=== PATIENT | female | born 1945 | race Caucasian/White ===

== ENCOUNTER 2019-04-15 07:14 | Outpatient (REF) | payer MEDICARE, SELFPAY ==
[2019-04-15 11:35] LABS: Chol HDL Ratio 3.88 mg/dL (0.0-4.40); Cholesterol 233 mg/dL (0-200); Glucose 81 mg/dL (65-115); HDL Cholesterol 60 mg/dL (60-100); LDL Cholesterol Calculated 151 mg/dL (50-129); LDL HDL Ratio 2.52 RATIO (0.00-3.22); Triglycerides 109 mg/dL (0-150)
[2019-04-15 11:55] LABS: Estmated Average Glucose 108; Hemoglobin A1C 5.4 % (4.0-6.0)
== END 2019-04-15 07:15 | disposition home or self-care (01) ==
LOC: LAB 07:14
PROVIDERS: Family Provider Family Medicine; Visit Provider Dermatology
DX: Z01.89 Encounter for other specified special examinations (principal)
CPT/HCPCS: 80061; 82947; 83036

== ENCOUNTER 2019-12-06 14:13 | Outpatient (CLI) | payer MEDICARE, SELFPAY ==
--- NOTE | 2019-12-06 14:23 | MM_ITS ---
WS: [id number] BILATERAL SCREENING DIGITAL MAMMOGRAM WITH CAD HISTORY: SCREENING COMPARISON: 11/24/2017, 11/11/2017, 10/17/2016 Bilateral CC and MLO views submitted. Computer aided detection analyzed. Breast composition: The breasts are heterogeneously dense, which may obscure small masses. No suspici ous masses, microcalcifications or architectural distortion. Stable intramammary lymph node in the me dial RIGHT breast. MM/[place] [id number] IMPRESSION: BI-RADS: 2-Benign FOLLOW UP: 1 Year Follow-up
--- NOTE | 2019-12-06 14:55 | XR_ITS ---
WS: [id number] SCREENING DEXA SCAN [facility] CLINICAL INFORMATION: OSTEOPOROSIS COMPARISON: 2017 FINDINGS: The L1-L4 bone mineral density measures 0.943 g/cm2. This corresponds to a T score score of -2.0 and Z score of 0.2. Left femoral neck bone mineral density measures 0.713 g/cm2. This corresponds to a T score of -2.3 an d Z score of -0.4. Right femoral neck bone mineral density measures 0.702 g/cm2. This corresponds to a T score -2.4of an d Z score of -0.5. Mean femoral neck bone mineral density measures 0.708 g/cm2. This corresponds to a T score of -2.4 an d Z score of -0.5. XR/XR DEXA axial skeleton* [id number] IMPRESSION: Osteopenia in the lumbar spine. Osteopenia approaching osteoporosis in the femo ral necks. Patient's FRAX calculated 10 year probability for major osteoporotic fracture i s 43.1 % and osteoporotic hip fracture is 26.0%. Bone mineral density in the lumbar spine has decreased -3.3% and also decreased -3.5% in the femoral necks since 2017.
== END 2019-12-06 14:14 | disposition home or self-care (01) ==
LOC: RADSHAW 14:20
PROVIDERS: PCP Family Medicine; Visit Provider Family Medicine
DX: Z12.31 Encounter for screening mammogram for malignant neoplasm of breast (principal); M81.0 Age-related osteoporosis without current pathological fracture
CPT/HCPCS: 77067; 77080

== ENCOUNTER → 2020-08-17 12:23 | Outpatient (BNVA) | payer MEDICARE, SELFPAY | PROVIDERS: PCP Family Medicine; Visit Provider Nurse Practitioner Family | DX: Z20.822 Contact with and (suspected) exposure to COVID-19 (principal) | CPT/HCPCS: 87635 ==

== ENCOUNTER 2020-12-05 14:20 | Outpatient (CLI) | payer MEDICARE, SELFPAY ==
--- NOTE | 2020-12-05 14:33 | MM_ITS ---
WS: [id number] Exam: [place] [id number] Date/Time of Exam: 12/05/2020 2:37 PM Reason For Exam: SCREENING VIEWS: MLO and CC views both breasts. Comparison made with prior exam of 11/11/2017, 10/17/2016 and 12/06/2019. Findings: There was no sign of mass, architectural distortion or suspicious calcification in either breast. He terogeneously dense MM/[place] [id number] Impression: BI-RADS: 2-Benign FOLLOW-UP: 1 Year Follow-up This mammogram was also analyzed by the Computer Aided Detection System R2 Imag e Manager Of Clinical.
== END 2020-12-05 14:21 | disposition home or self-care (01) ==
LOC: RADSHAW 14:29
PROVIDERS: PCP Family Medicine; Visit Provider Family Medicine
DX: Z12.31 Encounter for screening mammogram for malignant neoplasm of breast (principal)
CPT/HCPCS: 77067

== ENCOUNTER → 2021-10-31 11:02 | Outpatient (BNVA) | payer MEDICARE, SELFPAY | PROVIDERS: PCP Family Medicine; Visit Provider Family Medicine | DX: Z00.00 Encounter for general adult medical examination without abnormal findings (principal); E78.5 Hyperlipidemia, unspecified | CPT/HCPCS: 80053; 80061; 85025 ==

== ENCOUNTER 2021-12-17 14:08 | Outpatient (CLI) | payer MEDICARE, SELFPAY ==
--- NOTE | 2021-12-17 14:22 | MM_ITS ---
WS: [id number] BILATERAL 3D TOMOSYNTHESIS DIGITAL SCREENING MAMMOGRAPHY WITH CAD CLINICAL INFORMATION: SCREENING HISTORY: Screening mammogram. No current complaints. COMPARISON: December 05, 2020 TECHNIQUE: Bilateral CC and MLO views. FINDINGS: The breasts are composed of heterogeneous fibroglandular density tissue, which can limit the detectio n of small underlying mass lesions. Asymmetric density near the chest wall 9 mm appears new or progre ssed compared to the prior examinations. Recommend RIGHT diagnostic mammography and ultrasound. This is best seen on the cc view. LEFT breast is unchanged. A few incidental and punctate calcifications. MM/[place] [id number] IMPRESSION: BI-RADS: 0-Incomplete: Need additional imaging evaluation FOLLOW UP: Need Additional Imaging Recommend RIGHT breast diagnostic mammography and ultrasound.
== END 2021-12-17 14:09 | disposition home or self-care (01) ==
LOC: RAD 14:10
PROVIDERS: PCP Family Medicine; Visit Provider Family Medicine
DX: Z12.31 Encounter for screening mammogram for malignant neoplasm of breast (principal)
CPT/HCPCS: 77063; 77067

== ENCOUNTER 2021-12-17 14:08 | Outpatient (CLI) | payer MEDICARE, SELFPAY ==
--- NOTE | 2021-12-17 15:30 | XR_ITS ---
WS: [id number] DEXA (DUAL ENERGY X-RAY ABSORPTIOMETRY) Bone mineral density was performed using a DNage machine. HISTORY: screening COMPARISON: 12/06/2019 Lumbar spine BMD (L1-L4): 0.964 g/cm2 T score: -1.8 Z score: 0.4 Total hip BMD: Left: 0.707 g/cm2. T score: -2.4 Z score: -0.4 Right: 0.693 g/cm2. T score: -2.5 Z score: -0.5 10 year probability of a major osteoporotic fracture is 29.6%. Compared to the prior study from 12/06/2019. Lumbar spine bone mineral density has increased by 2.2%. Bilateral hips bone mineral density has decreased by 1.1%. XR/XR DEXA axial skeleton* [id number] IMPRESSION: OSTEOPOROSIS based upon the WHO classification for females. Slight significant increase in bone mineral density within the lumbar spine sin ce prior study. No significant change within the hips.
== END 2021-12-17 14:09 | disposition home or self-care (01) ==
LOC: RAD 14:11
PROVIDERS: PCP Family Medicine; Visit Provider Family Medicine
DX: Z00.00 Encounter for general adult medical examination without abnormal findings (principal); M81.0 Age-related osteoporosis without current pathological fracture
CPT/HCPCS: 77080

== ENCOUNTER 2022-01-09 07:33 | Outpatient (CLI) | payer MEDICARE, SELFPAY ==
--- NOTE | 2022-01-09 07:43 | MM_ITS ---
WS: [id number] RIGHT 3D TOMOSYNTHESIS DIGITAL MAMMOGRAPHY WITH CAD CLINICAL INFORMATION: Abnormal mammogram COMPARISON: December 17, 2021 TECHNIQUE: 3 views of the right breast were obtained. FINDINGS: The right breast is composed of heterogeneous fibroglandular density tissue, which can limit the dete ction of small underlying mass lesions. 9 mm asymmetric density near the chest wall partially thu ses out on the spot compression views. Ultrasound described below. ULTRASOUND BREAST RIGHT TECHNIQUE: Ultrasound right breast focused area of concern. CLINICAL INFORMATION: Abnormal mammogram COMPARISON: None. FINDINGS: Ultrasound RIGHT breast at the 12:00 and 6:00 position. Normal underlying breast tissue. No cystic or solid lesions. No suspicious lesions to target for biopsy. Recommend return to annual screening mamm ography. MM/[place] [id number] IMPRESSION: BI-RADS: 2-Benign FOLLOW UP: 1 Year Follow-up Recommend return to annual screening mammography.
== END 2022-01-09 07:34 | disposition home or self-care (01) ==
LOC: RAD 07:35
PROVIDERS: PCP Family Medicine; Visit Provider Family Medicine
DX: R92.8 Other abnormal and inconclusive findings on diagnostic imaging of breast (principal)
CPT/HCPCS: 76642; 77061

== ENCOUNTER → 2022-02-04 13:14 | Outpatient (BNVA) | payer MEDICARE, SELFPAY | PROVIDERS: PCP Family Medicine; Visit Provider Podiatrist Foot & Ankle Surgery | DX: M20.12 Hallux valgus (acquired), left foot (principal); M20.11 Hallux valgus (acquired), right foot; M20.41 Other hammer toe(s) (acquired), right foot; M20.42 Other hammer toe(s) (acquired), left foot; M21.621 Bunionette of right foot; M21.622 Bunionette of left foot; M21.6X1 Other acquired deformities of right foot; M21.6X2 Other acquired deformities of left foot | CPT/HCPCS: 73630; 99204 ==

== ENCOUNTER → 2022-09-16 10:14 | Outpatient (BNVA) | payer MEDICARE, SELFPAY | PROVIDERS: PCP Family Medicine; Visit Provider Podiatrist Foot & Ankle Surgery | DX: M77.40 Metatarsalgia, unspecified foot (principal); M21.6X1 Other acquired deformities of right foot; M21.6X2 Other acquired deformities of left foot; M20.12 Hallux valgus (acquired), left foot; M20.11 Hallux valgus (acquired), right foot; M20.41 Other hammer toe(s) (acquired), right foot; M20.42 Other hammer toe(s) (acquired), left foot; M21.621 Bunionette of right foot; M21.622 Bunionette of left foot | CPT/HCPCS: 73630; 99213 ==

== ENCOUNTER → 2022-11-05 08:14 | Outpatient (BNVA) | payer MEDICARE, SELFPAY | PROVIDERS: PCP Family Medicine; Visit Provider Family Medicine | DX: Z00.00 Encounter for general adult medical examination without abnormal findings (principal) | CPT/HCPCS: 80053; 80061 ==

== ENCOUNTER 2022-12-30 09:17 | Outpatient (CLI) | payer MEDICARE, SELFPAY ==
--- NOTE | 2022-12-30 09:56 | MM_ITS ---
WS: [id number] VIEWS: MLO and CC views both breasts. 3D digital tomosynthesis is also included in this exam. Comparison made with prior exam of 11/11/2017, 12/06/2019, 12/17/2021. Also 09/26/2013, 10/25/2014 and 10/07.. Findings: There was no sign of mass, architectural distortion or suspicious calcification in either breast. Sta ble appearing nodular densities in both breasts. The breasts are heterogeneously dense which may obsc ure small masses Impression: MM/[place] [id number] BI-RADS: 2-Benign finding. FOLLOW-UP: 1 Year Follow-up This mammogram was also analyzed by the Computer Aided Detection System R2 Imag e [employer].
== END 2022-12-30 09:18 | disposition home or self-care (01) ==
LOC: RAD 09:17
PROVIDERS: PCP Family Medicine; Visit Provider Family Medicine
DX: Z12.31 Encounter for screening mammogram for malignant neoplasm of breast
CPT/HCPCS: 77063; 77067

== ENCOUNTER 2023-11-10 06:00 | Outpatient (CLI) | payer MEDICARE, SELFPAY | END 2023-11-10 06:01 | disposition home or self-care (01) | LOC: RAD 11-11 14:13 | PROVIDERS: PCP Family Medicine; Visit Provider Family Medicine | DX: Z00.00 Encounter for general adult medical examination without abnormal findings (principal); E78.5 Hyperlipidemia, unspecified | CPT/HCPCS: 80053; 80061 ==

== ENCOUNTER 2024-01-20 14:07 | Outpatient (CLI) | payer MEDICARE, SELFPAY ==
--- NOTE | 2024-01-20 14:10 | XR_ITS ---
WS: [id number] DEXA (DUAL ENERGY X-RAY ABSORPTIOMETRY) Bone mineral density was performed using a [employer] machine. HISTORY: FOLLOW UP OSTEOPENIA COMPARISON: 12/17/2021 Lumbar spine BMD (L1-L4): 0.983 g/cm2 T score: -1.6 Z score: 0.5 Total hip BMD: Left: 0.702 g/cm2. T score: -2.4 Z score: -0.3 Right: 0.686 g/cm2. T score: -2.6 Z score: -0.4 10 year probability of a major osteoporotic fracture is 22.3%. Compared to the prior study from 12/17/2021. Lumbar spine bone mineral density has increased by 2.0%. Bilateral hips bone mineral density has decreased by 0.9%. XR/XR DEXA axial skeleton* [id number] IMPRESSION: OSTEOPOROSIS based upon the WHO classification for females. Very slight increase in bone mineral density within the lumbar spine since the prior study. No significant change in bone mineral density within the hips.
--- NOTE | 2024-01-20 14:10 | MM_ITS ---
WS: [id number] Bilateral screening 3D tomosynthesis digital mammogram, 01/20/2024 2:12 PM Clinical Data: SCREENING Comparison: 12/30/2022, 01/09/2022, 12/17/2021, 12/05/2020, 12/06/2019, 11/24/2017, 11/11/2017, 10/17/2016, 10/25/2014, 09/26/2013, 05/10/2012, 04/16/2011, 02/08/2010, 12/25/2008. Findings: No spiculated masses or clustered calcifications are seen. There are no secondary signs of carcinoma . MM/MM scr BI tomosynthesis [id number] Impression: Negative bilateral mammogram unchanged. Recommend annual screening mammograms. BIRADS: 1 - Negative. FOLLOW UP: 1 Year Follow-up DENSITY: There are scattered areas of fibroglandular density. The CAD relay checker was used
== END 2024-01-20 14:08 | disposition home or self-care (01) ==
LOC: RAD 14:08
PROVIDERS: PCP Family Medicine; Visit Provider Family Medicine
DX: Z12.31 Encounter for screening mammogram for malignant neoplasm of breast; M81.0 Age-related osteoporosis without current pathological fracture
CPT/HCPCS: 77063; 77067; 77080

== ENCOUNTER → 2024-11-10 08:43 | Outpatient (BNVA) | payer MEDICARE, SELFPAY | PROVIDERS: PCP Family Medicine; Visit Provider Family Medicine | DX: Z00.00 Encounter for general adult medical examination without abnormal findings (principal); E78.5 Hyperlipidemia, unspecified | CPT/HCPCS: 80053; 80061; 85025 ==